=== PATIENT | female | born 1985 | race Two or more races ===

== ENCOUNTER 2018-01-15 01:10 | Inpatient (IN) | payer OTHER ==
[2018-01-15] MEDS ORDERED: CARBOPROST 250 MCG INJ IM ×2 (02:30→21:30)
[2018-01-15] MEDS ORDERED: MISOPROSTOL 200 MCG TAB PR ×2 (02:30→21:30)
[2018-01-15] MEDS ORDERED: OXYTOCIN 30 UNITS/LR 500 ML IV ×3 (02:30→21:30)
[2018-01-15] MEDS ORDERED: METHYLERGONOVINE 0.2 MG INJ IM ×2 (02:30→21:30)
[2018-01-15] MEDS: LACTATED RINGER'S 1,000 ML IV ×4 (04:16→21:22)
[2018-01-15 04:45] LABS: ADD MAN DIFF? NO
[2018-01-15 04:48] LABS: WHITE BLOOD COUNT 11.1 10^3/ul (4.8-10.8)
[2018-01-15 04:48] LABS: BASOPHILS % 0.3 % (0.0-2.0); EOSINOPHILS # 0.2 10^3/ul (0.0-0.5); HEMOGLOBIN 10.9 g/dl (12.0-16.0); LYMPHOCYTES # 1.8 10^3/ul (0.8-2.9); LYMPHOCYTES % 16.5 % (15.0-51.0); MEAN CORPUSCULAR HGB CONC 32.1 g/dl (32.0-37.0); MEAN CORPUSCULAR VOLUME 62.5 fl (82.0-101.0); MEAN PLATELET VOLUME 10.5 fl (7.4-10.4); MONOCYTE # 0.7 10^3/ul (0.3-0.9); MONOCYTES % 6.2 % (0.0-11.0); NEUTROPHIL # 8.3 10^3/ul (1.6-7.5); NEUTROPHILS % 74.5 % (39.0-77.0); PLATELET COUNT 199 10^3/UL (140-415); RED BLOOD COUNT 5.44 10^6/ul (4.20-5.40); RED CELL DISTRIBUTION WIDTH 15.3 % (11.5-14.5)
[2018-01-15 05:08] LABS: INR 0.92; PROTIME 12.4 Sec (11.9-14.9)
[2018-01-15 05:09] LABS: PARTIAL THROMBOPLASTIN TIME 29.1 Sec (25.0-35.0)
[2018-01-15 05:38] LABS: HEPATITIS B SURFACE ANTIGEN NEGATIVE (NEGATIVE)
[2018-01-15] MEDS: FAMOTIDINE 20 MG INJ IV (16:34)
[2018-01-15] MEDS: CITRIC ACID/SODIUM CITRATE 15 ML CUP PO (16:34)
[2018-01-15] MEDS: METOCLOPRAMIDE 10 MG INJ IV (16:34)
[2018-01-15] MEDS ORDERED: BUPIVACAINE 0.75%/DEXT (SPINAL) 2 ML INJ (16:53)
[2018-01-15] MEDS ORDERED: morphine SULFATE/PF (10 MG/10 ML) INJ (16:53)
[2018-01-15] MEDS ORDERED: PHENYLephrine (100 MCG/ML) 5ML SYG (17:04)
[2018-01-15] MEDS ORDERED: ONDANSETRON 4 MG INJ (17:09)
[2018-01-15] MEDS ORDERED: EPHEDrine SULFATE 50 MG/5 ML SYG (17:26)
[2018-01-15] MEDS ORDERED: PROCHLORPERAZINE 10 MG INJ IV (17:30)
[2018-01-15] MEDS ORDERED: HYDROmorphONE 0.5 MG/0.5 ML SYG IV ×2 (17:30)
[2018-01-15] MEDS ORDERED: MEPERIDINE 25 MG INJ IV (17:30)
[2018-01-15] MEDS ORDERED: DIPHENHYDRAMINE 50 MG INJ IV ×2 (17:30)
[2018-01-15] MEDS ORDERED: NALOXONE (0.4 MG/ML) INJ IV (17:30)
[2018-01-15] MEDS ORDERED: HYDROmorphONE (0.2 MG/ML) 10ML SYG IV (17:30)
[2018-01-15] MEDS ORDERED: ZOLPIDEM 5 MG TAB PO (17:30)
[2018-01-15] MEDS ORDERED: ONDANSETRON 4 MG INJ IV (17:30)
[2018-01-15] MEDS ORDERED: FENTAnyl 50 MCG/ML VIAL IV (17:30)
[2018-01-15 18:15] LABS: RAPID PLASMA REAGIN NONREACTIVE (NR)
[2018-01-15] MEDS: OXYTOCIN 30 UNITS/LR 500 ML IV ×2 (18:29→22:33)
[2018-01-15] MEDS: KETOROLAC 30 MG INJ IV (19:24)
[2018-01-15] MEDS: CEFAZOLIN 2 GM/50 ML (PMX) 50 ML IV (20:06)
[2018-01-15] MEDS ORDERED: LANOLIN 7 GM TUBE TOP (21:30)
[2018-01-15] MEDS: IBUPROFEN 800 MG TAB PO (22:00)
[2018-01-16] MEDS: IBUPROFEN 800 MG TAB PO ×3 (06:00→22:13)
[2018-01-16] MEDS: ONDANSETRON 4 MG INJ IV (06:33)
[2018-01-16] MEDS: LACTATED RINGER'S 1,000 ML IV ×3 (07:40→21:22)
[2018-01-16] MEDS: SENNA/DOCUSATE NA (8.6MG/50MG) TAB PO ×2 (09:05→22:14)
[2018-01-16 11:11] LABS: ADD MAN DIFF? NO
[2018-01-16 11:15] LABS: WHITE BLOOD COUNT 13.5 10^3/ul (4.8-10.8)
[2018-01-16 11:15] LABS: BASOPHILS % 0.1 % (0.0-2.0); EOSINOPHILS # 0.1 10^3/ul (0.0-0.5); EOSINOPHILS % 0.4 % (0.0-7.0); HEMATOCRIT 30.4 % (37.0-47.0); HEMOGLOBIN 9.7 g/dl (12.0-16.0); LYMPHOCYTES % 7.6 % (15.0-51.0); MEAN CORPUSCULAR HGB CONC 31.9 g/dl (32.0-37.0); MEAN CORPUSCULAR VOLUME 62.8 fl (82.0-101.0); MEAN PLATELET VOLUME 10.5 fl (7.4-10.4); MONOCYTE # 0.6 10^3/ul (0.3-0.9); MONOCYTES % 4.7 % (0.0-11.0); NEUTROPHIL # 11.7 10^3/ul (1.6-7.5); NEUTROPHILS % 86.6 % (39.0-77.0); PLATELET COUNT 177 10^3/UL (140-415); RED BLOOD COUNT 4.84 10^6/ul (4.20-5.40); RED CELL DISTRIBUTION WIDTH 14.7 % (11.5-14.5)
[2018-01-16] MEDS: KETOROLAC 30 MG INJ IV (11:21)
[2018-01-16] MEDS: OXYCODONE/ACETAMINOPHEN (5/325) TAB PO ×2 (18:20→22:15)
[2018-01-17] MEDS: LACTATED RINGER'S 1,000 ML IV ×2 (05:22→13:22)
[2018-01-17] MEDS: IBUPROFEN 800 MG TAB PO ×3 (06:36→22:17)
[2018-01-17] MEDS: OXYCODONE/ACETAMINOPHEN (5/325) TAB PO ×3 (07:04→20:41)
[2018-01-17] MEDS: SENNA/DOCUSATE NA (8.6MG/50MG) TAB PO ×2 (09:11→20:41)
[2018-01-17] MEDS: MAGNESIUM HYDROXIDE 30ML CUP PO (20:41)
[2018-01-18 01:10] LABS: ADD UMIC YES; UR ASCORBIC ACID NEGATIVE (NEGATIVE); UR BILIRUBIN (Dip) NEGATIVE (NEGATIVE); UR BLOOD (Dip) 2+ mg/dL (NEGATIVE); UR CLARITY CLEAR (CLEAR); UR COLOR YELLOW (YELLOW); UR GLUCOSE (Dip) NEGATIVE (NEGATIVE); UR KETONES (Dip) NEGATIVE (NEGATIVE); UR LEUKOCYTE ESTERASE (Dip) NEGATIVE Leu/ul (NEGATIVE); UR MUCUS FEW /HPF (NONE SEEN); UR NITRITE (Dip) NEGATIVE (NEGATIVE); UR RBC 133 /HPF (0-5); UR SPECIFIC GRAVITY (Dip) 1.028 (1.003-1.030); UR TOTAL PROTEIN (Dip) 1+ mg/dl (NEGATIVE); UR UROBILINOGEN (Dip) NEGATIVE (NEGATIVE); UR WBC 6 /HPF (0-5)
[2018-01-18] MEDS: OXYCODONE/ACETAMINOPHEN (5/325) TAB PO ×2 (03:37→13:20)
[2018-01-18] MEDS: IBUPROFEN 800 MG TAB PO ×3 (05:41→22:14)
[2018-01-18] MEDS: SENNA/DOCUSATE NA (8.6MG/50MG) TAB PO ×2 (08:51→20:42)
[2018-01-18] MEDS: DIPHTH/TET/ACEL PERTUSS (ADULT) 0.5 ML VIAL IM* (08:52)
[2018-01-18] MEDS: CEPHALEXIN 500 MG CAP PO (15:13)
[2018-01-18 15:16] LABS: ADD MAN DIFF? NO
[2018-01-18 15:19] LABS: WHITE BLOOD COUNT 9.7 10^3/ul (4.8-10.8)
[2018-01-18 15:19] LABS: BASOPHILS % 0.2 % (0.0-2.0); EOSINOPHILS # 0.4 10^3/ul (0.0-0.5); EOSINOPHILS % 4.2 % (0.0-7.0); LYMPHOCYTES # 1.3 10^3/ul (0.8-2.9); LYMPHOCYTES % 13.4 % (15.0-51.0); MEAN CORPUSCULAR HEMOGLOBIN 20.1 pg (29.0-33.0); MEAN CORPUSCULAR HGB CONC 31.3 g/dl (32.0-37.0); MEAN CORPUSCULAR VOLUME 64.4 fl (82.0-101.0); MEAN PLATELET VOLUME 10.6 fl (7.4-10.4); MONOCYTE # 0.5 10^3/ul (0.3-0.9); NEUTROPHIL # 7.4 10^3/ul (1.6-7.5); NEUTROPHILS % 76.9 % (39.0-77.0); PLATELET COUNT 228 10^3/UL (140-415); RED BLOOD COUNT 4.97 10^6/ul (4.20-5.40); RED CELL DISTRIBUTION WIDTH 14.8 % (11.5-14.5)
[2018-01-18 15:38] LABS: ALANINE AMINOTRANSFERASE 25 IU/L (13-69); ALBUMIN 3.1 g/dl (3.3-4.9); ALBUMIN/GLOBULIN RATIO 0.96; ALKALINE PHOSPHATASE 106 IU/L (42-121); ANION GAP 11 (8-16); ASPARTATE AMINO TRANSFERASE 22 IU/L (15-46); BILIRUBIN,INDIRECT 0.1 mg/dl (0-1.1); BILIRUBIN,TOTAL 0.1 mg/dl (0.2-1.3); BLOOD UREA NITROGEN 6 mg/dl (7-20); CARBON DIOXIDE 30 mmol/L (21-31); CHLORIDE 105 mmol/L (97-110); CREATININE 0.58 mg/dl (0.44-1.00); GLUCOSE 108 mg/dl (70-220); POTASSIUM 4.8 mmol/L (3.5-5.1); SODIUM 141 mmol/L (135-144); TOTAL PROTEIN 6.3 g/dl (6.1-8.1)
[2018-01-19] MEDS: CEPHALEXIN 500 MG CAP PO ×3 (00:02→12:49)
[2018-01-19] MEDS: OXYCODONE/ACETAMINOPHEN (5/325) TAB PO (02:07)
[2018-01-19] MEDS: IBUPROFEN 800 MG TAB PO ×2 (06:02→14:06)
[2018-01-19] MEDS: SENNA/DOCUSATE NA (8.6MG/50MG) TAB PO (09:00)
== END 2018-01-19 17:03 | disposition home or self-care (01) | DRG 766 ==
LOC: OBT 01:10 → L-D 01:10 → OBT 02:00 → L-D 02:00 → PP1 20:37
PROVIDERS: Obstetrics & Gynecology
PROC: 10D00Z1 Extraction of Products of Conception, Low, Open Approach (ICD-10-PCS; principal; 2018-01-15)
PROC: 0UB70ZZ Excision of Bilateral Fallopian Tubes, Open Approach (ICD-10-PCS; 2018-01-15)
PROC: 4A1HXCZ Monitoring of Products of Conception, Cardiac Rate, External Approach (ICD-10-PCS; 2018-01-15)
DX: O34.211 Maternal care for low transverse scar from previous cesarean delivery (principal); Z3A.38 38 weeks gestation of pregnancy; Z37.0 Single live birth; Z30.2 Encounter for sterilization
CPT/HCPCS: 80053; 81001; 85025; 85610; 85730; 86592; 86850; 86900; 86901; 87086; 87340; 88302; 94760; 99464

== ENCOUNTER 2018-03-27 15:45 | Emergency (ER) | payer OTHER ==
[2018-03-27] MEDS: KETOROLAC 30 MG INJ IM (19:56)
== END 2018-03-27 19:57 | disposition home or self-care (01) ==
LOC: FTE 19:57
DX: M72.2 Plantar fascial fibromatosis (principal)
CPT/HCPCS: 96372; 99284-25

== ENCOUNTER 2018-12-03 12:19 | Emergency (ER) | payer MEDICAID, OTHER | END 2018-12-03 15:15 | disposition home or self-care (01) | LOC: FTE 12:19 | DX: J32.9 Chronic sinusitis, unspecified (principal) | CPT/HCPCS: 99283; Z7502 ==